=== PATIENT | male | born 1980 | race Hispanic/Latino ===

== ENCOUNTER 2017-01-30 16:01 | Emergency (ER) | payer BC, OTHER ==
[2017-01-30 16:32] VITALS: BP 144/91; PULSE 83; RESP 16; TEMP 98; O2SAT 100
--- NOTE | 2017-01-30 16:41 | ED PDOC ---
Upper Extremity Pain/Injury Time Seen by Provider: 01/30/17 16:22 Chief Complaint (Nursing): Finger,Hand,&Wrist Chief Complaint (Provider): Right Hand Pain History Per: Patient History/Exam Limitations: no limitations Onset/Duration Of Symptoms: Sudden Onset Current Symptoms Are (Timing): Still Present Quality: "Pain" Severity: Moderate Additional Complaint(s): Moe Sutton is a 36 y/o male presenting to the ER on 01/30/2017 with complaints of right hand pain onset this morning. Patient reports pain in his right hand after punching a wall, contrary to the triage report. The pain did not resolve on its own over time, prompting him to seek medical evaluation. He did not take any pain medications prior to arrival. Offers no other complaints at this time. Past Medical History Reviewed: Historical Data, Nursing Documentation, Vital Signs Vital Signs: Last Vital Signs Temp 98.0 F 01/30/17 16:31 Pulse 83 01/30/17 16:31 Resp 16 01/30/17 16:31 BP 144/91 H 01/30/17 16:31 Pulse Ox 100 01/30/17 16:31 - Medical History PMH: HTN - Surgical History Surgical History: No Surg Hx - Family History Family History: States: Unknown Family Hx - Home Medications Home Medications: Ambulatory Orders Medication Instructions Recorded Ibuprofen [Motrin Tab] 800 mg PO Q6H PRN #20 tab 01/30/17 - Allergies Allergies/Adverse Reactions: Allergies Allergy/AdvReac Type Severity Reaction Status Date / Time No Known Allergies Allergy Verified 01/30/17 16:30 Review of Systems ROS Statement: Except As Marked, All Systems Reviewed And Found Negative Musculoskeletal: Positive for: Hand Pain ((+) right ) Neurological: Negative for: Weakness, Numbness Physical Exam - Reviewed Nursing Documentation Reviewed: Yes Vital Signs Reviewed: Yes - Physical Exam Appears: Positive for: Non-toxic, No Acute Distress Head Exam: Positive for: ATRAUMATIC, NORMOCEPHALIC Skin: Positive for: Normal Color Eye Exam: Positive for: Normal appearance Neck: Positive for: Normal, Painless ROM, Supple Respiratory: Negative for: Respiratory Distress Extremity: Positive for: Deformity ((+) bone deformity of the 4th and 5th right metacarpal ), Other (sensation intact, multiple superficial abrasions on right hand). Negative for: Normal ROM (limited ROM) Neurologic/Psych: Positive for: Alert, Oriented. Negative for: Motor/Sensory Deficits - ECG O2 Sat by Pulse Oximetry: 100 Medical Decision Making Medical Decision Makin:22 Initial Impression- RUE injury. Initial Plan- * XR right hand * Ibuprofen 600 mg PO * Re-evaluate 17:21 XR Reviewed, findings show mildly displaced fracture of the 4th metacarpal. Metacarpal splint and antibiotic ointment were applied. Pt is stable for discharge. Encouraged pt to schedule a follow-up with referred pain management ( Dr. Campos) within 1-2 days. Clinical Impression- Metacarpal bone fracture Documented by Vivian Valencia ,acting as a scribe for Marie Pearce PA-C All medical record entries made by the Scribe were at my direction and personally dictated by me. I have reviewed the chart and agree that the record accurately reflects my personal performance of the history, physical exam, medical decision making, and the department course for this patient. I have also personally directed, reviewed, and agree with the discharge instructions and disposition. Disposition - Clinical Impression Clinical Impression: Metacarpal bone fracture - Disposition Referrals: Aaron Campos MD [Staff Provider] - Disposition: Routine/Home Disposition Time: 17:30 Condition: STABLE Prescriptions: Ibuprofen [Motrin Tab] 800 mg PO Q6H PRN #20 tab PRN Reason: Pain Instructions: Hand Fracture (ED) Forms: [facility] ED School/Work Excuse
--- NOTE | 2017-01-31 09:34 | RAD ---
PROCEDURE: Right hand 01/30/2017 HISTORY: Status post fall with metacarpal pain COMPARISON: None. FINDINGS: BONES: Current study reveals a comminuted intra-articular fracture of the proximal 4th metacarpal. . Additionally, there may be dorsal subluxation -dislocation proximal metacarpal finger. Followup CT scan recommended. JOINTS: Normal. No osteoarthritic changes. SOFT TISSUES: Normal. OTHER FINDINGS: None. IMPRESSION: Current study reveals a comminuted intra-articular fracture of the proximal 4th metacarpal. . Additionally, there may be dorsal subluxation -dislocation proximal metacarpal finger. Followup CT scan recommended. Note that this was placed in PA review folder followup.
== END 2017-01-30 17:35 | disposition home or self-care (01) ==
LOC: H.ER 16:01
DX: S62.316A Displaced fracture of base of fifth metacarpal bone, right hand, initial encounter for closed fracture (principal); W22.8XXA Striking against or struck by other objects, initial encounter; Y92.89 Other specified places as the place of occurrence of the external cause

== ENCOUNTER 2017-03-26 11:41 | Emergency (ER) | payer OTHER ==
[2017-03-26 11:54] VITALS: BP 121/68; PULSE 75; RESP 16; TEMP 97.6; O2SAT 99; BMI 26.5
--- NOTE | 2017-03-26 12:20 | ED PDOC ---
Upper Extremity Pain/Injury Time Seen by Provider: 03/26/17 12:08 Chief Complaint (Provider): handpain History Per: Patient History/Exam Limitations: no limitations Additional Complaint(s): 36yo M in ED for eval of right hand injury sustained today after hitting hand against ar door-states that he had a fracture to right hand Jan 13 2017 and has since been having trouble making an orthopedic appointment. However, pt has orthopedic appt for . PT admits to tingling sensation to ulnar side, swelling and pain. unable to make a fist. Past Medical History Reviewed: Historical Data, Nursing Documentation, Vital Signs Vital Signs: Last Vital Signs Temp 97.6 F 03/26/17 11:53 Pulse 75 03/26/17 11:53 Resp 16 03/26/17 11:53 BP 121/68 03/26/17 11:53 Pulse Ox 99 03/26/17 11:53 - Medical History PMH: HTN - Family History Family History: States: Unknown Family Hx - Immunization History Hx Tetanus Toxoid Vaccination: No Hx Influenza Vaccination: No Hx Pneumococcal Vaccination: No - Home Medications Home Medications: Ambulatory Orders Medication Instructions Recorded Ibuprofen [Motrin Tab] 800 mg PO Q6H PRN #20 tab 01/30/17 - Allergies Allergies/Adverse Reactions: Allergies Allergy/AdvReac Type Severity Reaction Status Date / Time No Known Allergies Allergy Verified 01/30/17 16:30 Review of Systems ROS Statement: Except As Marked, All Systems Reviewed And Found Negative Musculoskeletal: Positive for: Hand Pain Physical Exam - Reviewed Nursing Documentation Reviewed: Yes Vital Signs Reviewed: Yes - Physical Exam Appears: Positive for: Well, Non-toxic, No Acute Distress Skin: Positive for: Normal Color, Warm, DRY Cardiovascular/Chest: Positive for: Regular Rate, Rhythm Respiratory: Positive for: CNT, Normal Breath Sounds Extremity: Positive for: Other (right hand: ulnar side sweling tenderness dec ROM swelling to dorsum of hand. ) Neurologic/Psych: Positive for: Alert, Oriented - ECG O2 Sat by Pulse Oximetry: 99 - Radiology X-Ray: Interpreted by [facility] X-Ray Interpretation: Fracture (unchanged from 01/30/17) - Progress ED Course And Treament: xray r/o fx motrin for pain. Medical Decision Making Medical Decision Making: dx: hand fracture plan: pt given volar splint advised to continue to keep appt with orthopedic. advised to take motrin Disposition - Clinical Impression Clinical Impression: Metacarpal bone fracture - Patient ED Disposition Is Patient to be Admitted: No Counseled Patient/Family Regarding: Studies Performed, Diagnosis, Need For Followup, Rx Given - Disposition Disposition: Routine/Home Disposition Time: 13:07 Condition: STABLE Instructions: Wrist Fracture in Adults (ED)
--- NOTE | 2017-03-26 14:04 | RAD ---
PROCEDURE: Right Hand Radiographs. HISTORY: hand injury COMPARISON: None. FINDINGS: BONES: No acute fractures. 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 SOFT TISSUES: Soft tissue swelling laterally at the level of the proximal 5th metacarpal. OTHER FINDINGS: None. IMPRESSION: Soft tissue swelling without acute articular or osseous abnormality.
== END 2017-03-26 13:30 | disposition home or self-care (01) ==
LOC: H.ER 11:41
DX: S62.91XA Unspecified fracture of right hand, initial encounter for closed fracture (principal); W22.8XXA Striking against or struck by other objects, initial encounter; Y92.89 Other specified places as the place of occurrence of the external cause